=== PATIENT | female | born 1970 | race African-American/Black ===

== ENCOUNTER 2017-01-24 01:29 | Inpatient (IN) | payer OTHER ==
[2017-01-24] VITALS (8 sets, daily range): BP systolic 141–167; BP diastolic 78–101
[~2017-01-24] VITALS: Ht 172.7 cm; Wt 108.9 kg
[2017-01-24] MEDS ORDERED: HYDR12.529 PO (01:47)
[2017-01-24] MEDS ORDERED: DILT120C11 PO (01:47)
[2017-01-24] MEDS ORDERED: METHYLPREDNISOLONE SOD SUCC 125 MG/2 ML VIAL IV NR (02:00)
[2017-01-24] MEDS ORDERED: DIPHENHYDRAMINE 50MG CAPSULE PO PRN (02:00)
[2017-01-24] MEDS ORDERED: DIPHENHYDRAMINE 50MG/ML VIAL IV PRN (02:30)
[2017-01-24] MEDS: DIPHENHYDRAMINE 50MG/ML VIAL IV PRN ×4 (02:41→19:42)
[2017-01-24] MEDS: MORPHINE SULFATE 2 MG/ML CPJ (NOT FOR IM USE) IV PRN ×6 (02:54→23:02)
[2017-01-24] MEDS: SODIUM CHLORIDE 0.45% 1,000 ML IV SCH ×2 (02:58→22:53)
[2017-01-24 09:38] LABS: HEMATOCRIT. 33.4 % (36.0-48.0); HEMOGLOBIN. 11.1 g/dL (12.0-16.0); MEAN CORPUSCULAR HEMOGLOBIN 31.1 pg (28.0-32.0); MEAN CORPUSCULAR VOLUME 93.6 fL (81.0-99.0); MEAN PLATELET VOLUME 7.7 fl (7.4-10.4); PLATELET 540 x1000/uL (130-400); RED BLOOD CELL COUNT 3.57 mill/uL (4.2-5.4); RED CELL DISTRIBUTION WIDTH 13.1 % (11.6-14.6)
[2017-01-24] MEDS: HYDROCHLOROTHIAZIDE 12.5MG CAPSULE PO SCH (09:46)
[2017-01-24] MEDS: DILTIAZEM HCL 120MG CAPSULE CD 24HR PO SCH (09:47)
[2017-01-24 10:01] LABS: CARBON DIOXIDE 25 mEq/L (21-32); CHLORIDE 102 mEq/L (98-107)
[2017-01-24] MEDS: FAMOTIDINE 20MG/2ML VIAL IV SCH ×2 (13:44→22:40)
[2017-01-24 13:50] LABS: PLATELET ESTIMATE INCREASED
[2017-01-24] MEDS: HYDROCORTISONE 1% OINT 28.35GM TOP SCH ×2 (16:17→22:41)
[2017-01-24] MEDS: MONTELUKAST SODIUM 10MG TABLET PO SCH (22:40)
[2017-01-25] VITALS: BP 157/95
[2017-01-25] MEDS: DIPHENHYDRAMINE 50MG/ML VIAL IV PRN (03:47)
[2017-01-25] MEDS: MORPHINE SULFATE 2 MG/ML CPJ (NOT FOR IM USE) IV PRN ×2 (03:51→08:17)
[2017-01-25 04:00] VITALS: BP 143/69
[2017-01-25] MEDS: HYDROCORTISONE 1% OINT 28.35GM TOP SCH ×3 (06:41→21:50)
[2017-01-25 08:00] VITALS: BP 171/95
[2017-01-25] MEDS: DILTIAZEM HCL 120MG CAPSULE CD 24HR PO SCH (08:05)
[2017-01-25] MEDS: HYDROCHLOROTHIAZIDE 12.5MG CAPSULE PO SCH (08:05)
[2017-01-25] MEDS: FAMOTIDINE 20MG/2ML VIAL IV SCH (08:08)
[2017-01-25 12:00] VITALS: BP 153/84
[2017-01-25] MEDS ORDERED: HYDROCODONE/ACETAMINOPHEN 10/325MG TABLET PO PRN (15:15)
[2017-01-25] MEDS ORDERED: HYDROCODONE/ACETAMINOPHEN 5/325MG TABLET PO PRN (15:15)
[2017-01-25 16:00] VITALS: BP 147/92
[2017-01-25 16:41] LABS: BASOPHILS % 0.4 % (0.0-2.0); EOSINOPHILS % 8.2 % (0.0-5.0); HEMATOCRIT. 34.6 % (36.0-48.0); HEMOGLOBIN. 11.5 g/dL (12.0-16.0); LYMPHOCYTES % 12.2 % (20.0-50.0); MEAN CORPUSCULAR HEMOGLOBIN 31.1 pg (28.0-32.0); MEAN CORPUSCULAR VOLUME 93.6 fL (81.0-99.0); MEAN PLATELET VOLUME 7.8 fl (7.4-10.4); MONOCYTES % 5.3 % (2.0-8.0); NEUTROPHILS % 73.9 % (40.0-76.0); PLATELET 476 x1000/uL (130-400); RED BLOOD CELL COUNT 3.69 mill/uL (4.2-5.4); RED CELL DISTRIBUTION WIDTH 13.4 % (11.6-14.6)
[2017-01-25 17:00] LABS: CARBON DIOXIDE 25 mEq/L (21-32); CHLORIDE 102 mEq/L (98-107)
[2017-01-25] MEDS: DIPHENHYDRAMINE 25MG CAPSULE PO SCH (18:27)
[2017-01-25 20:00] VITALS: BP 151/87
[2017-01-25] MEDS ORDERED: FAMOTIDINE 20MG TABLET PO SCH (21:00)
[2017-01-25] MEDS: MONTELUKAST SODIUM 10MG TABLET PO SCH (21:48)
[2017-01-25] MEDS: MELOXICAM 7.5MG TABLET PO SCH (21:49)
[2017-01-26] VITALS: BP 143/78
[2017-01-26] MEDS: DIPHENHYDRAMINE 25MG CAPSULE PO SCH ×2 (01:29→06:40)
[2017-01-26 04:00] VITALS: BP 164/92
[2017-01-26] MEDS: HYDROCORTISONE 1% OINT 28.35GM TOP SCH ×3 (06:00→22:00)
[2017-01-26 06:36] LABS: HEMATOCRIT. 32.5 % (36.0-48.0); HEMOGLOBIN. 10.7 g/dL (12.0-16.0); MEAN CORPUSCULAR HEMOGLOBIN 31.2 pg (28.0-32.0); MEAN CORPUSCULAR VOLUME 95.2 fL (81.0-99.0); MEAN PLATELET VOLUME 7.7 fl (7.4-10.4); PLATELET 427 x1000/uL (130-400); RED BLOOD CELL COUNT 3.41 mill/uL (4.2-5.4); RED CELL DISTRIBUTION WIDTH 13.5 % (11.6-14.6)
[2017-01-26 07:33] LABS: CARBON DIOXIDE 28 mEq/L (21-32); CHLORIDE 103 mEq/L (98-107)
[2017-01-26 08:00] VITALS: BP 158/91
[2017-01-26] MEDS ORDERED: METHYLPREDNISOLONE SOD SUCC 125 MG/2 ML VIAL IV NR ×2 (08:45→12:30)
[2017-01-26] MEDS ORDERED: POTASSIUM CHLORIDE 20MEQ TABLET SR PO SCH (08:45)
[2017-01-26] MEDS: HYDROCHLOROTHIAZIDE 12.5MG CAPSULE PO SCH (09:05)
[2017-01-26] MEDS: MELOXICAM 7.5MG TABLET PO SCH ×2 (09:05→18:03)
[2017-01-26] MEDS: DILTIAZEM HCL 120MG CAPSULE CD 24HR PO SCH (09:05)
[2017-01-26 12:00] VITALS: BP 145/82
[2017-01-26] MEDS: FAMOTIDINE 20MG/2ML VIAL IV SCH ×2 (12:27→21:48)
[2017-01-26 12:29] LABS: PLATELET ESTIMATE NORMAL
[2017-01-26 16:00] VITALS: BP 155/84
[2017-01-26] MEDS: DIPHENHYDRAMINE 50MG/ML VIAL IV PRN ×2 (16:09→21:48)
[2017-01-26] MEDS ORDERED: METHYLPREDNISOLONE SOD SUCC 40 MG/ML VIAL IV NR (18:00)
[2017-01-26 20:00] VITALS: BP 155/78
[2017-01-26] MEDS: MONTELUKAST SODIUM 10MG TABLET PO SCH (21:47)
[2017-01-27] VITALS: BP 127/82
[2017-01-27 04:00] VITALS: BP 153/94
[2017-01-27] MEDS: DIPHENHYDRAMINE 50MG/ML VIAL IV PRN ×4 (04:19→20:54)
[2017-01-27] MEDS: FENTANYL CITRATE/PF 50MCG/ML 2ML VIAL IV PRN ×2 (04:23→21:09)
[2017-01-27] MEDS: HYDROCORTISONE 1% OINT 28.35GM TOP SCH ×2 (06:20→21:00)
[2017-01-27 08:00] VITALS: BP 166/99
[2017-01-27] MEDS: FAMOTIDINE 20MG/2ML VIAL IV SCH ×2 (08:47→20:53)
[2017-01-27] MEDS: MELOXICAM 7.5MG TABLET PO SCH ×2 (08:47→17:39)
[2017-01-27] MEDS: DILTIAZEM HCL 120MG CAPSULE CD 24HR PO SCH (08:47)
[2017-01-27] MEDS: HYDROCHLOROTHIAZIDE 12.5MG CAPSULE PO SCH (08:47)
[2017-01-27 12:00] VITALS: BP 144/89
[2017-01-27 16:00] VITALS: BP 139/87
[2017-01-27] MEDS: CLOBETASOL 0.05 % CREAM 15GM TOP SCH ×2 (17:40→21:00)
[2017-01-27 20:00] VITALS: BP_SYST 137; BP_SYST 138; BP_DIAS 86; BP_DIAS 87
[2017-01-27] MEDS: MONTELUKAST SODIUM 10MG TABLET PO SCH (20:53)
[2017-01-28] VITALS: BP 136/84
[2017-01-28 04:00] VITALS: BP_SYST 134; BP_DIAS 80; BP_DIAS 85
[2017-01-28] MEDS: CLOBETASOL 0.05 % CREAM 15GM TOP SCH ×2 (06:11→13:16)
[2017-01-28] MEDS: HYDROCORTISONE 1% OINT 28.35GM TOP SCH ×3 (06:12→13:18)
[2017-01-28] MEDS: DIPHENHYDRAMINE 50MG/ML VIAL IV PRN (06:29)
[2017-01-28 08:00] VITALS: BP 155/86
[2017-01-28 08:00] LABS: CARBON DIOXIDE 29 mEq/L (21-32); CHLORIDE 104 mEq/L (98-107)
[2017-01-28 08:16] LABS: BASOPHILS % 0.5 % (0.0-2.0); EOSINOPHILS % 10.5 % (0.0-5.0); HEMATOCRIT. 33.4 % (36.0-48.0); HEMOGLOBIN. 10.7 g/dL (12.0-16.0); LYMPHOCYTES % 18.1 % (20.0-50.0); MEAN CORPUSCULAR HEMOGLOBIN 30.5 pg (28.0-32.0); MEAN PLATELET VOLUME 8.1 fl (7.4-10.4); MONOCYTES % 3.2 % (2.0-8.0); NEUTROPHILS % 67.7 % (40.0-76.0); PLATELET 343 x1000/uL (130-400); RED BLOOD CELL COUNT 3.52 mill/uL (4.2-5.4); RED CELL DISTRIBUTION WIDTH 13.2 % (11.6-14.6)
[2017-01-28] MEDS: DILTIAZEM HCL 120MG CAPSULE CD 24HR PO SCH (08:49)
[2017-01-28] MEDS: FAMOTIDINE 20MG/2ML VIAL IV SCH (08:49)
[2017-01-28] MEDS: MELOXICAM 7.5MG TABLET PO SCH (08:49)
[2017-01-28] MEDS: HYDROCHLOROTHIAZIDE 12.5MG CAPSULE PO SCH (08:49)
[2017-01-28] MEDS: FENTANYL CITRATE/PF 50MCG/ML 2ML VIAL IV PRN (08:50)
[2017-01-28] MEDS ORDERED: POTASSIUM CHLORIDE 20MEQ TABLET SR PO SCH (10:15)
[2017-01-28 12:00] VITALS: BP 148/80
[2017-01-28] MEDS ORDERED: HYDR30OI12 TOP (12:13)
[2017-01-28] MEDS ORDERED: DIPH25CA83 PO (12:13)
[2017-01-28] MEDS ORDERED: MOBI7 PO (12:13)
[2017-01-28] MEDS ORDERED: MONT10TA21 PO (12:13)
[2017-01-28] MEDS ORDERED: CLOB30CR27 TOP (12:13)
[2017-01-28] MEDS ORDERED: FAMO40TA35 PO (12:14)
[2017-01-28 14:17] VITALS: BP 148/80
== END 2017-01-28 15:31 | disposition home or self-care (01) | DRG 607 ==
LOC: 6EST 01:29
PROVIDERS: ADMIT Internal Medicine Critical Care Medicine; ATTEND Internal Medicine Critical Care Medicine
PROC: 02HV33Z Insertion of Infusion Device into Superior Vena Cava, Percutaneous Approach (ICD-10-PCS; principal; 2017-01-26)
PROC: B548ZZA Ultrasonography of Superior Vena Cava, Guidance (ICD-10-PCS; 2017-01-26)
DX: L27.0 Generalized skin eruption due to drugs and medicaments taken internally (principal); T36.1X5A Adverse effect of cephalosporins and other beta-lactam antibiotics, initial encounter; T40.2X5A Adverse effect of other opioids, initial encounter; E87.6 Hypokalemia; Z96.651 Presence of right artificial knee joint; Y92.89 Other specified places as the place of occurrence of the external cause; Z68.36 Body mass index [BMI] 36.0-36.9, adult; Z88.0 Allergy status to penicillin; Z88.6 Allergy status to analgesic agent
CPT/HCPCS: 36415; 36569; 71010; 76937; 80048; 80053; 85025; 85651; 86140; 97110; 97116; 97162; C1725; C1893; J1200; J2270; J2920; J2930; J3010; J3490; Q0163